=== PATIENT | female | born 1940 | race Caucasian/White ===

== ENCOUNTER 2016-11-27 10:14 | Outpatient (CLI) | payer MEDICARE, MEDICAID ==
[~2016-11-27 10:14] MED LIST: ADVAIR 250/5028 PUFF IN; AUGMENTIN1 TA2 PO; BACTRIM DS 8001 TA1 PO; BACTRIM DS 8001 TAB PO; CENTRUM1 TAB PO; CITALOPRAM20 M1 PO; CLINDAMYCIN HC300 MG PO; COMBIVENT INH14.7 GM IN; COREG25 M1 PO; COUMADIN5 MG PO; DIGOX0.125 MG PO; GABAPENTIN 400400 MG PO; LIPITOR10 MG PO; LISINOPRIL 10MG10 MG PO; LISINOPRIL2.5 MG PO; METOPROLOL25 MG PO; MULTAQ400 M1 PO; MULTIVITAMIN1 TA1 PO; NYSTATIN C30 GM/TUB1 TP; PROAIR HFA0.09 MG/AC IH; SPIRIVA HA1 PUFF/INH IH; SPIRIVA18 MCG IH; TRIAMCINOLON 0.15 GM TP; ULTRAM50 MG PO; WARFARIN SODIU2.5 MG PO; ZANTAC 150150 MG PO; ZANTAC 300300 M1 PO; ZANTAC 300300 MG PO
== END 2016-11-27 11:11 ==
LOC: ACC 10:14
DX: I48.91 Unspecified atrial fibrillation (principal); Z79.01 Long term (current) use of anticoagulants; Z51.81 Encounter for therapeutic drug level monitoring
CPT/HCPCS: G0463

== ENCOUNTER 2017-01-05 10:34 | Outpatient (CLI) | payer MEDICARE, MEDICAID | END 2017-01-05 11:40 | LOC: ACC 10:34 | DX: I48.91 Unspecified atrial fibrillation (principal); Z79.01 Long term (current) use of anticoagulants; Z51.81 Encounter for therapeutic drug level monitoring | CPT/HCPCS: G0463 ==